=== PATIENT | female | born 1970 | race Caucasian/White ===

== ENCOUNTER 2017-09-23 09:41 | Outpatient (CLI) | payer OTHER | END 2017-09-23 11:50 | disposition home or self-care (01) | LOC: OBT 09:41 → L-D 10:06 → OBT 11:50 | DX: O36.8130 Decreased fetal movements, third trimester, not applicable or unspecified (principal); Z3A.37 37 weeks gestation of pregnancy | CPT/HCPCS: 76816; 76818 ==

== ENCOUNTER 2017-10-01 14:22 | Outpatient (CLI) | payer OTHER ==
[2017-10-01 15:20] LABS: RUPTURE FETAL MEMBRANES NEGATIVE (NEGATIVE)
== END 2017-10-01 15:50 | disposition home or self-care (01) ==
LOC: OBT 14:22 → L-D 14:23 → OBT 15:50
DX: O47.1 False labor at or after 37 completed weeks of gestation (principal); Z3A.38 38 weeks gestation of pregnancy
CPT/HCPCS: 76818; 84112

== ENCOUNTER 2017-10-03 08:10 | Outpatient (CLI) | payer OTHER | END 2017-10-03 11:06 | disposition home or self-care (01) | LOC: OBT 08:10 → L-D 08:11 → OBT 11:06 | DX: O42.92 Full-term premature rupture of membranes, unspecified as to length of time between rupture and onset of labor (principal); Z3A.39 39 weeks gestation of pregnancy | CPT/HCPCS: 76815; 76818 ==

== ENCOUNTER 2017-10-05 07:59 | Inpatient (IN) | payer OTHER ==
[2017-10-05 12:22] LABS: ADD MAN DIFF? NO
[2017-10-05] MEDS: LACTATED RINGER'S 1,000 ML IV ×4 (12:25→20:40)
[2017-10-05 12:26] LABS: BASOPHILS % 0.4 % (0.0-2.0); EOSINOPHILS % 0.6 % (0.0-7.0); HEMATOCRIT 39.3 % (37.0-47.0); HEMOGLOBIN 13.5 g/dl (12.0-16.0); LYMPHOCYTES # 1.2 10^3/ul (0.8-2.9); LYMPHOCYTES % 17.3 % (15.0-51.0); MEAN CORPUSCULAR HGB CONC 34.4 g/dl (32.0-37.0); MEAN CORPUSCULAR VOLUME 96.1 fl (82.0-101.0); MEAN PLATELET VOLUME 12.5 fl (7.4-10.4); MONOCYTE # 0.6 10^3/ul (0.3-0.9); MONOCYTES % 8.9 % (0.0-11.0); NEUTROPHILS % 72.5 % (39.0-77.0); PLATELET COUNT 208 10^3/UL (140-415); RED BLOOD COUNT 4.09 10^6/ul (4.20-5.40); RED CELL DISTRIBUTION WIDTH 13.2 % (11.5-14.5)
[2017-10-05 12:26] LABS: WHITE BLOOD COUNT 6.9 10^3/ul (4.8-10.8)
[2017-10-05] MEDS: DINOPROSTONE 10 MG VAG SUPP VAG ×2 (12:27→12:30)
[2017-10-05] MEDS ORDERED: METHYLERGONOVINE 0.2 MG INJ IM (12:30)
[2017-10-05] MEDS ORDERED: LIDOCAINE 1% (MPF) 30 ML INJ INJ (12:30)
[2017-10-05] MEDS ORDERED: IBUPROFEN 600 MG TAB PO (12:30)
[2017-10-05] MEDS ORDERED: CARBOPROST 250 MCG INJ IM (12:30)
[2017-10-05] MEDS ORDERED: MISOPROSTOL 200 MCG TAB PR (12:30)
[2017-10-05] MEDS ORDERED: OXYTOCIN 30 UNITS/LR 500 ML IV ×2 (12:30)
[2017-10-05] MEDS ORDERED: BUTORPHANOL 2 MG INJ IV (12:30)
[2017-10-05 12:44] LABS: INR 0.93; PROTIME 12.5 Sec (11.9-14.9)
[2017-10-05 12:45] LABS: PARTIAL THROMBOPLASTIN TIME 30.8 Sec (25.0-35.0)
[2017-10-05] MEDS: MISOPROSTOL 25 MCG CAPSULE PO (14:18)
[2017-10-05 15:14] LABS: RAPID PLASMA REAGIN NONREACTIVE (NR)
[2017-10-05 18:46] LABS: HEPATITIS B SURFACE ANTIGEN NEGATIVE (NEGATIVE)
[2017-10-05] MEDS ORDERED: FENTAnyl 2MCG/ML-ROPIV 0.2% 100 ML (20:13)
[2017-10-05] MEDS: OXYTOCIN 30 UNITS/LR 500 ML IV (21:42)
[2017-10-05] MEDS ORDERED: FENTAnyl 2MCG/ML-ROPIV 0.2% 100 ML BAG EPI (22:30)
[2017-10-05] MEDS ORDERED: NALOXONE (0.4 MG/ML) INJ IV (22:30)
[2017-10-06] MEDS: LACTATED RINGER'S 1,000 ML IV ×3 (04:10→22:03)
[2017-10-06] MEDS: FENTAnyl 2MCG/ML-ROPIV 0.2% 100 ML BAG EPI (10:09)
[2017-10-06] MEDS: AMPICILLIN 2 GM/NS (PMX) 100 ML IVPB ×4 (11:09→19:16)
[2017-10-06] MEDS ORDERED: AMPICILLIN 2 GM/NS (PMX) 100 ML IVPB (12:00)
[2017-10-06] MEDS ORDERED: OXYTOCIN 30 UNITS/LR 500 ML IV ×2 (16:00→22:30)
[2017-10-06] MEDS ORDERED: morphine SULFATE/PF (10 MG/10 ML) INJ (17:02)
[2017-10-06] MEDS ORDERED: FENTAnyl 50 MCG/ML VIAL ×2 (17:04→17:25)
[2017-10-06] MEDS ORDERED: MIDAZOLAM 1 MG/ML 2 ML INJ ×2 (17:06→17:25)
[2017-10-06] MEDS ORDERED: KETAMINE 500 MG INJ (17:07)
[2017-10-06] MEDS ORDERED: ONDANSETRON 4 MG INJ (17:13)
[2017-10-06] MEDS ORDERED: PHENYLephrine (100 MCG/ML) 5ML SYG (17:14)
[2017-10-06] MEDS ORDERED: OXYTOCIN 10 UNIT INJ (17:14)
[2017-10-06] MEDS: OXYTOCIN 30 UNITS/LR 500 ML IV ×2 (17:59→22:18)
[2017-10-06] MEDS: CEFAZOLIN 2 GM/50 ML (PMX) 50 ML IV (18:44)
[2017-10-06] MEDS: KETOROLAC 30 MG INJ IV (20:04)
[2017-10-06] MEDS ORDERED: DIPHENHYDRAMINE 50 MG INJ IV (21:30)
[2017-10-06] MEDS ORDERED: ZOLPIDEM 5 MG TAB PO (21:30)
[2017-10-06] MEDS ORDERED: morphine 2 MG INJ IV ×2 (21:30)
[2017-10-06] MEDS ORDERED: NALOXONE (0.4 MG/ML) INJ IV (21:30)
[2017-10-06] MEDS ORDERED: NA PHOSPHATE/BIPHOS 133 ML ENEMA PR (22:30)
[2017-10-06] MEDS ORDERED: MISOPROSTOL 200 MCG TAB PR (22:30)
[2017-10-06] MEDS ORDERED: LANOLIN 7 GM TUBE TOP (22:30)
[2017-10-06] MEDS ORDERED: CARBOPROST 250 MCG INJ IM (22:30)
[2017-10-06] MEDS ORDERED: METHYLERGONOVINE 0.2 MG INJ IM (22:30)
[2017-10-06] MEDS ORDERED: HYDROCODONE/APAP (5/325) TAB PO (22:30)
[2017-10-06] MEDS ORDERED: NACL 0.9% 3 ML SYG IV (22:30)
[2017-10-07] MEDS: ONDANSETRON 4 MG INJ IV (00:25)
[2017-10-07] MEDS: LACTATED RINGER'S 1,000 ML IV (06:55)
[2017-10-07 10:14] LABS: ABNORMAL IP MESSAGE 1; HEMATOCRIT 29.2 % (37.0-47.0); HEMOGLOBIN 10.1 g/dl (12.0-16.0); MEAN CORPUSCULAR HEMOGLOBIN 33.6 pg (29.0-33.0); MEAN CORPUSCULAR HGB CONC 34.6 g/dl (32.0-37.0); MEAN PLATELET VOLUME 13.2 fl (7.4-10.4); PLATELET COUNT 173 10^3/UL (140-415); RED BLOOD COUNT 3.01 10^6/ul (4.20-5.40); RED CELL DISTRIBUTION WIDTH 13.5 % (11.5-14.5)
[2017-10-07 10:14] LABS: WHITE BLOOD COUNT 15.3 10^3/ul (4.8-10.8)
[2017-10-07 10:18] LABS: ADD MAN DIFF? YES; POSITIVE DIFF @See below
[2017-10-07 11:22] LABS: ANISOCYTOSIS 1+ (0-0); BAND NEUTROPHILS #M 1.2 10^3/ul (0.0-0.6); BAND NEUTROPHILS % (M) 8 % (0-4); BURR CELLS 1+ (0-0); GIANT THROMBO% (M) 3 % (0-0); LYMPHOCYTES #M 1.2 10^3/ul (0.8-2.9); LYMPHOCYTES % (M) 8 % (15-51); MONOCYTE #M 0.6 10^3/ul (0.3-0.9); MONOCYTES % (M) 4 % (0-11); PLATELET ESTIMATE NORMAL; POLYCHROMASIA 1+ (0-0); SEG NEUT #M 12.4 10^3/ul (1.6-7.5); SEGMENTED NEUTROPHILS (M) % 80 % (39-77)
[2017-10-07] MEDS: KETOROLAC 30 MG INJ IV (15:46)
[2017-10-07] MEDS: GUAIFENESIN 20 MG/ML 5ML CUP PO (17:13)
[2017-10-07] MEDS: IBUPROFEN 800 MG TAB PO (22:14)
[2017-10-08] MEDS: IBUPROFEN 800 MG TAB PO ×3 (05:34→22:37)
[2017-10-08] MEDS: GUAIFENESIN 20 MG/ML 5ML CUP PO ×2 (05:34→12:56)
[2017-10-09] MEDS: IBUPROFEN 800 MG TAB PO ×2 (06:16→14:00)
[2017-10-09] MEDS: DIPHTH/TET/ACEL PERTUSS (ADULT) 0.5 ML VIAL IM* (09:00)
[2017-10-09] MEDS: MEASLES,MUMPS,RUBELLA VACCINE INJ SC* (09:00)
== END 2017-10-09 14:15 | disposition home or self-care (01) | DRG 765 ==
LOC: OBT 07:59 → L-D 07:59 → OBT 10:19 → L-D 10:05 → PP1 10-06 21:13
PROVIDERS: Obstetrics & Gynecology
PROC: 10D00Z1 Extraction of Products of Conception, Low, Open Approach (ICD-10-PCS; principal; 2017-10-06 17:00)
DX: O33.9 Maternal care for disproportion, unspecified (principal); O75.2 Pyrexia during labor, not elsewhere classified; Z37.0 Single live birth; O76 Abnormality in fetal heart rate and rhythm complicating labor and delivery; Z3A.39 39 weeks gestation of pregnancy
CPT/HCPCS: 62319; 76818; 85025; 85610; 85730; 86592; 86885; 86900; 86901; 87340; 88307; 94760; 99464